=== PATIENT | female | born 1985 | race African-American/Black ===

== ENCOUNTER 2021-12-22 10:45 | Emergency (ER) | payer SELFPAY ==
[~2021-12-22] VITALS: Ht 170.2 cm; Wt 109.0 kg
[2021-12-22 10:55] VITALS: BP 112/56
[2021-12-22] MEDS ORDERED: ALBUTEROL (0.083%) 2.5MG/3ML NEB HHN STA (10:57)
[2021-12-22] MEDS ORDERED: PREDNISONE 20MG TABLET PO STA (10:57)
[2021-12-22] MEDS ORDERED: IPRATROPIUM BROMIDE (0.02%) 0.5MG/2.5ML NEB HHN STA (10:57)
[2021-12-22] MEDS ORDERED: P50 MT (12:21)
[2021-12-22] MEDS ORDERED: ALBU2.5V13 NEB (12:21)
[2021-12-22] MEDS ORDERED: ALBU6.7H9 INH (12:21)
== END 2021-12-22 12:32 | disposition home or self-care (01) ==
LOC: ER 10:45
DX: J45.901 Unspecified asthma with (acute) exacerbation (principal); Z79.51 Long term (current) use of inhaled steroids; Z91.041 Radiographic dye allergy status; Z91.013 Allergy to seafood
CPT/HCPCS: 93005; 94640; 99283; J7512; Z7610

== ENCOUNTER 2022-02-07 11:40 | Emergency (ER) | payer SELFPAY ==
[~2022-02-07] VITALS: Ht 172.7 cm; Wt 90.0 kg
[~2022-02-07 11:40] MED LIST: ALBU2.5V13 NEB; ALBU6.7H9 INH; P50 MT
[2022-02-07] MEDS ORDERED: PREDNISONE 20MG TABLET PO STA ×2 (11:48→13:05)
[2022-02-07] MEDS ORDERED: IPRATROPIUM BROMIDE (0.02%) 0.5MG/2.5ML NEB HHN STA ×2 (11:48→13:05)
[2022-02-07] MEDS ORDERED: ALBUTEROL (0.083%) 2.5MG/3ML NEB HHN STA ×2 (11:48→13:05)
[2022-02-07] MEDS ORDERED: NEBU-270 MC (13:34)
[2022-02-07] MEDS ORDERED: P50 MT (13:34)
[2022-02-07] MEDS ORDERED: ALBU6.7H9 INH (13:34)
[2022-02-07] MEDS ORDERED: ALBU2.5V13 NEB (13:34)
[2022-02-07 14:01] VITALS: BP 126/75
== END 2022-02-07 14:08 | disposition home or self-care (01) ==
LOC: ER 12:53
DX: J45.901 Unspecified asthma with (acute) exacerbation (principal)
CPT/HCPCS: 94640; 99283; J7512; Z7610

== ENCOUNTER 2022-04-10 10:03 | Emergency (ER) | payer MEDICAID ==
[~2022-04-10] VITALS: Ht 170.2 cm; Wt 82.0 kg
[~2022-04-10 10:03] MED LIST changes: +NEBU-270 MC
[2022-04-10 10:15] VITALS: BP 134/77
[2022-04-10] MEDS ORDERED: ALBUTEROL (0.083%) 2.5MG/3ML NEB HHN ONE (10:45)
[2022-04-10] MEDS ORDERED: IPRATROPIUM/ALBUTEROL 0.5-3(2.5)MG/3ML NEB HHN SCH (11:15)
[2022-04-10] MEDS ORDERED: PREDNISONE 20MG TABLET PO SCH (11:15)
[2022-04-10] MEDS ORDERED: ALBU6.7H15 INH (12:45)
[2022-04-10] MEDS ORDERED: P20 MT (12:45)
[2022-04-10] MEDS ORDERED: ALBU2.5V13 NEB (12:45)
== END 2022-04-10 13:06 | disposition home or self-care (01) ==
LOC: ER 10:03
DX: J45.901 Unspecified asthma with (acute) exacerbation (principal); F17.290 Nicotine dependence, other tobacco product, uncomplicated; Z79.899 Other long term (current) drug therapy; Z20.822 Contact with and (suspected) exposure to COVID-19
CPT/HCPCS: 87426; 94640; 99284; C9803; J7512; Z7610

== ENCOUNTER 2022-05-26 20:01 | Emergency (ER) | payer MEDICAID ==
[~2022-05-26] VITALS: Ht 170.2 cm; Wt 107.0 kg
[~2022-05-26 20:01] MED LIST changes: +ALBU6.7H15 INH; +P20 MT
[2022-05-26 20:30] VITALS: BP 141/60
[2022-05-26] MEDS ORDERED: PREDNISONE 20MG TABLET PO ONE (22:45)
[2022-05-26] MEDS ORDERED: IPRATROPIUM/ALBUTEROL 0.5-3(2.5)MG/3ML NEB HHN ONE (22:45)
[2022-05-26] MEDS ORDERED: ALBU2.5V13 NEB (23:38)
[2022-05-26] MEDS ORDERED: P20 MT (23:38)
[2022-05-26] MEDS ORDERED: ALBU6.7H9 INH (23:38)
== END 2022-05-27 00:15 | disposition home or self-care (01) ==
LOC: ER 20:01
DX: J45.901 Unspecified asthma with (acute) exacerbation (principal)
CPT/HCPCS: 94640; 99283; J7512; Z7610

== ENCOUNTER 2022-07-24 09:49 | Emergency (ER) | payer OTHER ==
[~2022-07-24] VITALS: Ht 170.2 cm; Wt 109.0 kg
[2022-07-24] MEDS ORDERED: P20 PO (12:07)
[2022-07-24] MEDS ORDERED: FLUT1BLS INH (12:07)
[2022-07-24] MEDS ORDERED: ALBU18HF2 IH (12:07)
[2022-07-24] MEDS ORDERED: IPRATROPIUM/ALBUTEROL 0.5-3(2.5)MG/3ML NEB HHN ONE (12:15)
[2022-07-24 13:41] VITALS: BP 110/81
== END 2022-07-24 13:45 | disposition home or self-care (01) ==
LOC: ER 09:49
DX: Z76.0 Encounter for issue of repeat prescription (principal); J45.901 Unspecified asthma with (acute) exacerbation; F17.200 Nicotine dependence, unspecified, uncomplicated; Z91.041 Radiographic dye allergy status; Z79.899 Other long term (current) drug therapy
CPT/HCPCS: 94640; 99283; Z7610

== ENCOUNTER 2022-10-11 08:04 | Emergency (ER) | payer OTHER ==
[~2022-10-11] VITALS: Ht 170.2 cm; Wt 104.0 kg
[~2022-10-11 08:04] MED LIST changes: +ALBU18HF2 IH; +ALBU6.7H3 INH; -ALBU6.7H9 INH; +FLUT1BLS INH; +P20 PO
[2022-10-11 08:07] VITALS: BP 113/64
[2022-10-11] MEDS ORDERED: IPRATROPIUM/ALBUTEROL 0.5-3(2.5)MG/3ML NEB HHN ONE ×2 (08:30→10:30)
[2022-10-11] MEDS ORDERED: PREDNISONE 20MG TABLET PO ONE (08:30)
[2022-10-11] MEDS ORDERED: P20 MT (10:40)
[2022-10-11] MEDS ORDERED: ALBU6.7H3 INH (10:40)
[2022-10-11] MEDS ORDERED: ALBU2.5V13 NEB (10:40)
== END 2022-10-11 12:19 | disposition home or self-care (01) ==
LOC: ER 08:04
DX: J45.901 Unspecified asthma with (acute) exacerbation (principal); F17.200 Nicotine dependence, unspecified, uncomplicated; Z79.899 Other long term (current) drug therapy
CPT/HCPCS: 94640; 99283; J7512; Z7610